=== PATIENT | female | born 1995 | race African-American/Black ===

== ENCOUNTER 2018-02-25 04:52 | Emergency (ER) | payer OTHER, BC ==
[~2018-02-25] VITALS: Ht 170.2 cm; Wt 62.6 kg
[2018-02-25 07:36] VITALS: BP 102/52
== END 2018-02-25 07:37 | disposition home or self-care (01) ==
LOC: ER 04:52
DX: O9A.211 Injury, poisoning and certain other consequences of external causes complicating pregnancy, first trimester (principal); O20.0 Threatened abortion; S00.93XA Contusion of unspecified part of head, initial encounter; Z88.1 Allergy status to other antibiotic agents; Z88.8 Allergy status to other drugs, medicaments and biological substances; Y04.2XXA Assault by strike against or bumped into by another person, initial encounter; Y92.89 Other specified places as the place of occurrence of the external cause; Y93.89 Activity, other specified; Y99.8 Other external cause status; Z3A.00 Weeks of gestation of pregnancy not specified

== ENCOUNTER 2018-04-20 07:09 | Emergency (ER) | payer OTHER, BC ==
[~2018-04-20] VITALS: Ht 137.2 cm; Wt 60.8 kg
[2018-04-20 08:07] LABS: HEMATOCRIT 30.7 % (37.0-47.0); HEMOGLOBIN 10.7 gm/dL (12.0-15.0); MCH 32.2 pg (26.0-34.0); MCHC 34.9 g/dL (28.0-37.0); MCV 92.3 fL (80.0-100.0); RBC 3.33 mil/uL (4.20-5.00); RDW 12.8 % (10.5-14.5); WBC 4.6 thou/uL (4.0-11.0)
[2018-04-20 09:24] VITALS: BP 106/62
== END 2018-04-20 09:26 | disposition home or self-care (01) ==
LOC: ER 07:09
PROVIDERS: Emergency Medicine
DX: O20.0 Threatened abortion (principal); Z88.8 Allergy status to other drugs, medicaments and biological substances; Z3A.14 14 weeks gestation of pregnancy

== ENCOUNTER 2021-03-22 14:19 | Emergency (ER) | payer OTHER ==
[~2021-03-22] VITALS: Ht 167.6 cm; Wt 65.3 kg
[2021-03-22 15:50] LABS: BASOPHILS 1.5 % (0.0-2.0); EOSINOPHILS 1.8 % (0.0-3.0); HEMOGLOBIN 11.7 gm/dL (12.0-15.0); LYMPHOCYTES 39.6 % (24.0-44.0); MCH 31.6 pg (26.0-34.0); MCHC 33.4 g/dL (28.0-37.0); MCV 94.7 fL (80.0-100.0); MONOCYTES 9.9 % (1.0-8.0); PLATELET COUNT 257 thou/uL (150-400); POLYS 47.2 % (36.0-66.0); RDW 11.9 % (10.5-14.5); WBC 4.2 thou/uL (4.0-11.0)
[2021-03-22 16:00] LABS: CALCIUM 8.9 mg/dL (8.5-10.1)
[2021-03-22 16:06] LABS: ALBUMIN 3.9 g/dL (3.4-5.0); TOTAL BILIRUBIN 0.2 mg/dL (0.2-1.0); TOTAL PROTEIN 7.1 g/dL (6.4-8.2)
[2021-03-22 17:48] VITALS: BP 123/71
== END 2021-03-22 17:57 | disposition home or self-care (01) ==
LOC: ER 14:19
PROVIDERS: Physician Assistant
DX: O20.0 Threatened abortion (principal); Z88.8 Allergy status to other drugs, medicaments and biological substances